=== PATIENT | female | born 1950 | race Caucasian/White ===

== ENCOUNTER 2019-11-03 12:58 | Outpatient (CLI) | payer MEDICARE, SELFPAY ==
--- NOTE | ~2019-11-03 | CT_ITS ---
EXAMINATION: CT abdomen pelvis wo con EXAM DATE: 11/03/2019 13:22 INDICATION: Abdominal pain. TECHNIQUE: Spiral CT of the abdomen and pelvis was performed without contrast. Axial, coronal and sag ittal images were reviewed. The dose-length product (DLP) for this examination was 293.47 mGy-cm. T he exposure was tailored according to patient size (auto mA exposure control), and iterative reconstr uction (ASIR) was used as additional dose reduction technique. Comparison is made to prior examinatio n from 07/06/2014. FINDINGS: There is punctate left inferior calyceal stone. The uterus is unremarkable. The bladder is unremarkable. The liver, spleen, adrenal glands and pancreas are unremarkable. There are cholecy stectomy clips. There is no retroperitoneal or pelvic lymphadenopathy. There is mild to moderate s cattered arteriosclerotic disease. The appendix is normal. The stomach and small bowel are unremarkable. There is mild sigmoid colonic diverticulosis. There is no adjacent inflammatory change to suggest diverticulitis. No free intrape ritoneal gas. The heart is normal in size. There are no pericardial or pleural effusions. The king g bases are unremarkable. There are no osteoblastic or osteolytic lesions identified. IMPRESSION: 1. No nephrolithiasis, hydronephrosis or acute intra-abdominal findings. 2. Mild sigmoid diverticulosis. 3. Punctate left nephrolithiasis. Reviewed, dictated and finalized at location B. THCARE ADMINISTRATIVE ASSISTANT
[2019-11-03 13:44] LABS: Add Urine Microscopic? NO; Appearance Urine Clear (Clear); Bilirubin Urine Negative (Negative); Blood Urine Negative (Negative); Color Urine Straw (Yellow); Glucose Urine UA Negative (Negative); Ketones Urine Negative (Negative); Leukocyte Esterase Ur Negative LEU/UL (Negative); Nitrate Urine Negative (Negative); Protein Urine Negative (Negative); Specific Grav Ur 1.009 (1.001-1.035); Urobilinogen Urine Negative mg/dL (<2.0)
== END 2019-11-03 12:59 | disposition home or self-care (01) ==
PROVIDERS: PCP Internal Medicine; Visit Provider Internal Medicine
DX: R10.9 Unspecified abdominal pain (principal); K57.30 Diverticulosis of large intestine without perforation or abscess without bleeding; N20.0 Calculus of kidney
CPT/HCPCS: 74176; 81003

== ENCOUNTER 2020-03-12 06:56 | Outpatient (CLI) | payer MEDICARE, SELFPAY ==
[2020-03-12 07:47] LABS: Hematocrit 36.6 % (37.0-47.0); Hemoglobin 12.2 g/dL (12.0-15.0); Mean Corpuscular HGB Conc 33.3 g/dl (32-36); Mean Corpuscular Hemoglobin 32.2 pg (26-34); Mean Corpuscular Volume 96.6 fl (80-100); Mean Platelet Volume 9.5 fl (7.4-10.4); Platelet Count Result 283 k/mm3 (150-375); Red Blood Count 3.79 M/mm3 (4.2-5.4); White Blood Count 6.4 K/mm3 (4.5-10.0)
[2020-03-12 07:48] LABS: Add Urine Microscopic? NO; Appearance Urine Clear (Clear); Bilirubin Urine Negative (Negative); Blood Urine Negative (Negative); Color Urine Yellow (Yellow); Glucose Urine UA Negative (Negative); Ketones Urine Negative (Negative); Leukocyte Esterase Ur Negative LEU/UL (NEGATIVE); Nitrate Urine Negative (Negative); Protein Urine Negative (Negative); Specific Grav Ur 1.013 (1.001-1.035); Urobilinogen Urine Negative mg/dL (<2.0)
[2020-03-12 08:13] LABS: Alanine Aminotransferase 10 U/L (4-35); Alkaline Phosphatase 78 U/L (38-126); Aspartate Amino Transferase 22 U/L (14-36); Bilirubin,Total 0.4 mg/dL (0.2-1.3); Blood Urea Nitrogen 15 mg/dL (7-17); Calcium 8.7 mg/dL (8.4-10.2); Carbon Dioxide 25 mmol/L (22-30); Chloride 107 mmol/L (98-107); Cholesterol 196 mg/dL (0-200); Estimated Glomerular Filt Rate > 60; Glucose 96 mg/dL (65-105); HDL Direct 87 mg/dL; Potassium 4.2 mmol/L (3.4-5.0); Sodium 139 mmol/L (137-145); Triglycerides 67 mg/dL (<150)
[2020-03-12 08:24] LABS: LDL Cholesterol Direct 94 mg/dL
[2020-03-12 08:40] LABS: Thyroid Stimulating Hormone 0.942 uIU/mL (0.465-4.680)
[2020-03-12 08:44] LABS: Vitamin D 25 Hydroxy 54.9 ng/mL
== END 2020-03-12 06:57 | disposition home or self-care (01) ==
PROVIDERS: PCP Internal Medicine; Visit Provider Internal Medicine
DX: I10 Essential (primary) hypertension (principal); E78.2 Mixed hyperlipidemia; F41.9 Anxiety disorder, unspecified; E55.9 Vitamin D deficiency, unspecified
CPT/HCPCS: 36415; 80053; 80061; 81003; 82306; 84443; 85027

== ENCOUNTER 2020-04-25 13:56 | Emergency (ER) | payer MEDICARE, SELFPAY ==
--- NOTE | ~2020-04-25 | CT_ITS ---
EXAMINATION: CT cervical spine wo con DATE: 04/25/2020 14:44 INDICATION: Patient fell and struck left forehead. Left neck and shoulder pain. TECHNIQUE: Computed tomography (CT) of the cervical spine was performed without intravenous contrast. Automated exposure control and iterative reconstruction technique were employed. Exam dose: 123.88 mGy-cm total exam DLP. COMPARISON: None FINDINGS: There is straightening of the cervical spine. There is severe degenerative disc disease at C3-4, C4-5, C5-6, C6-7 and C7-T1. No fracture or dislocation or locked facet. No prevertebral soft tissue swelling. There is uncovertebral spurring at the mid and lower cervical spine. IMPRESSION: Straightening of the cervical spine Severe degenerative disc disease Reviewed, dictated and finalized at Location A. Reviewed, dictated and finalized at location A.
--- NOTE | ~2020-04-25 | CT_ITS ---
EXAMINATION: CT brain wo con DATE: 04/25/2020 14:44 INDICATION: Patient fell and struck left forehead. Left neck and shoulder pain. TECHNIQUE: Computed tomography (CT) of the head was performed without intravenous contrast. The mA wa s adjusted according to patient size. Iterative reconstruction technique was employed. Exam dose: 52 9.67 mGy-cm total exam DLP. COMPARISON: None FINDINGS: No intracranial mass lesion or hemorrhage or cerebrovascular accident is detected. No midli ne shift or mass effect. Normal ventricular size. No subdural or epidural hematoma. Bilateral internal carotid artery calcifications. There is nonspecific diminished attenuation of the cerebral white matter, likely due to chronic small vessel ischemic changes. No fracture or bone destruction of the cranial vault. The included paranasal sinuses and mastoid air cells are normally developed and aerated. IMPRESSION: Cerebral atherosclerosis and chronic small vessel ischemic changes No acute intracranial abnormality Reviewed, dictated and finalized at Location A. Reviewed, dictated and finalized at location A.
--- NOTE | ~2020-04-25 | XR_ITS ---
XR shoulder LT min 2V DATE: 04/25/2020 14:46 INDICATION: Fall. Left shoulder pain. TECHNIQUE: 4 views COMPARISON: None FINDINGS: No fracture or dislocation, periosteal reaction or bone destruction or abnormal soft tissue calcification. IMPRESSION: No fracture or dislocation Reviewed, dictated and finalized at location A. IMPRESSION: No fracture or dislocation
[2020-04-25 14:00] VITALS: BP 141/83; PULSE 85; RESP 18; TEMP 36.6; O2SAT 97
--- NOTE | 2020-04-25 14:29 | ED.GENADULT ---
HPI - General Adult General Chief complaint: Fall Stated complaint: fall Time Seen by Provider: 04/25/20 14:13 History of Present Illness HPI narrative: Patient is a 69 y/o female complaining of sharp, left shoulder pain after a fall 30 minutes ago. She states that she tripped over a container on the porch and fell. She rates her pain as 8/10. Pain is worse with movement. She also has abrasion to left forehead and both knees. She denies any LOC. Related Data Home Medications Medication Instructions Recorded Confirmed Body, Hair, Skin and Nails 1 cap PO DAILY 07/24/19 07/24/19 Vitafusion For Women 1 tablet PO DAILY 07/24/19 07/24/19 aspirin [Aspirin Low Dose] 81 mg PO DAILY 07/24/19 07/24/19 biotin 10,000 mcg PO DAILY 07/24/19 07/24/19 cholecalciferol (vitamin D3) 2,000 unit PO DAILY 07/24/19 07/24/19 [Vitamin D3] estradiol 0.5 mg PO DAILY 07/24/19 07/24/19 [id number] 1 cap PO DAILY 07/24/19 07/24/19 [MegaRed [place]-3 Krill Oil] lysine [L-Lysine] 500 mg PO DAILY 07/24/19 07/24/19 mecobalamin (vitamin B12) 2,500 mcg PO DAILY 07/24/19 07/24/19 medroxyprogesterone [Provera] 2.5 mg PO DAILY 07/24/19 07/24/19 turmeric root extract 500 mg PO DAILY 07/24/19 07/24/19 vitamin B complex [B-Complex] 1 tablet PO DAILY 07/24/19 07/24/19 amitriptyline 10 mg PO HS 04/25/20 fluticasone propionate [Flonase 2 spray INTRANASAL DAILY 04/25/20 Allergy Relief] paroxetine HCl [Paxil] 5 mg PO DAILY 04/25/20 Allergies Allergy/AdvReac Type Severity Reaction Status Date / Time No Known Allergies Allergy Mild Verified 04/25/20 14:10 Review of Systems Constitutional: Constitutional: Denies chills, Denies fever(s), Denies headache(s) and Denies weakness Eyes: Eyes: Denies blurry vision ENT: Denies headache(s) and Denies neck pain Cardiovascular: Cardiovascular: Denies chest pain and Denies dyspnea Respiratory: Respiratory: Denies cough and Denies dyspnea Gastrointestinal: Gastrointestinal: Denies abdominal pain, Denies diarrhea, Denies nausea and Denies vomiting Genitourinary: Genitourinary: Denies hematuria and Denies dysuria Musculoskeletal: Musculoskeletal: Denies back pain, Reports arthralgias (left shoulder pain) and Reports neck pain Integumentary/Breasts: Skin/Breast: Reports other (multiple abrasion) Neurologic: Denies headache(s) and Denies weakness [facility] Past Medical History Medical History Arthritis Carotid arterial disease Carotid bruit HTN (hypertension) Hypovitaminosis D Lumbar spondylolysis Marijuana use Mixed hyperlipidemia Post-menopausal PVD (peripheral vascular disease) Family History Family History Mother Cerebrovascular accident Father Acute myocardial infarction Social History Social History Alcohol intake: current Gender identity (if verbalized by the patient): Female Exam Const: General: no acute distress and well developed Orientation/consciousness: oriented to person, oriented to place, oriented to time and patient oriented x3 HENMT: Head: normocephalic Ears: external ears normal General nose exam: Normal external nose present Eyes: General: appearance normal, both eyes and all related structures Conjunctivae: conjunctivae normal Neck: Neck: normal visual inspection and full ROM Chest: Chest palpation & inspection: normal inspection of the chest and no tenderness Resp: Effort & Inspection: normal respiratory effort Auscultation: clear to auscultation bilaterally Cardio: Rate: regular rate Rhythm: regular rhythm GI: GI Palp: No abdominal tenderness and Yes Soft to palpation Skin: General skin exam: normal color and turgor normal Trauma: abrasion (left forehead, both knees) Neuro: General: oriented to person, oriented to place, oriented to time and patient oriented x3 Cognition (Neuro): normal
[2020-04-25] MEDS: TETANUS,DIPHTHERIA,AC PERTUSSIS ADULT (0.5 ML) BOOSTRIX IM (15:05)
[2020-04-25 15:10] VITALS: BP 153/85; PULSE 80; RESP 20; O2SAT 98
[2020-04-25] MEDS: IBUPROFEN 600 MG TABLET PO (16:27)
[2020-04-25 17:00] VITALS: PULSE 80; RESP 20; O2SAT 98
== END 2020-04-25 17:27 | disposition home or self-care (01) ==
PROVIDERS: Emergency Provider Emergency Medicine; PCP Internal Medicine
DX: S49.92XA Unspecified injury of left shoulder and upper arm, initial encounter (principal); S80.212A Abrasion, left knee, initial encounter; S80.211A Abrasion, right knee, initial encounter; S00.81XA Abrasion of other part of head, initial encounter; Z79.82 Long term (current) use of aspirin; M19.90 Unspecified osteoarthritis, unspecified site; I25.10 Atherosclerotic heart disease of native coronary artery without angina pectoris; I10 Essential (primary) hypertension; E78.2 Mixed hyperlipidemia; I73.9 Peripheral vascular disease, unspecified; Z23 Encounter for immunization; E55.9 Vitamin D deficiency, unspecified; W18.09XA Striking against other object with subsequent fall, initial encounter
CPT/HCPCS: 70450; 72125; 73030; 90471; 90715; 99284; A4565; A9270

== ENCOUNTER 2020-05-21 08:45 | Outpatient (CLI) | payer MEDICARE, SELFPAY ==
--- NOTE | 2020-05-21 09:08 | ECG_ITS ---
Measurements Intervals [place] Rate: 74 P: 57 NV: 129 QRS: 69 QRSD: 80 T: 27 QT: 396 QTc: 440 Interpretive Statements SINUS RHYTHM BORDERLINE ST ABNORMALITY- ANTEROLAT/INF LEADS BASELINE ARTIFACT- I, II, III, AVL, AVF BORDERLINE ECG Electronically Signed On 05-21-2020 9:33:26 CDT by Navdeep Adamson D.O.
== END 2020-05-21 08:46 | disposition home or self-care (01) ==
PROVIDERS: PCP Internal Medicine; Visit Provider Internal Medicine
DX: I10 Essential (primary) hypertension (principal); R94.31 Abnormal electrocardiogram [ECG] [EKG]
CPT/HCPCS: 93005

== ENCOUNTER 2020-09-17 08:34 | Outpatient (CLI) | payer MEDICARE, SELFPAY ==
[2020-09-17 09:08] LABS: Basophils Absolute Auto 0.1 K/mm3 (0.0-0.1); Basophils Percent Auto 1.1 % (0.2-1.2); Eosinophils Absolute Auto 0.1 K/mm3 (0-0.3); Eosinophils Percent Auto 2.6 % (0-4.4); Hemoglobin 12.3 g/dL (12.0-15.0); Immature Granulocyte Absolute 0.02 K/mm3 (0.00-0.031); Immature Granulocyte Percent A 0.4 % (0-0.5); Lymphocytes Absolute Auto 1.78 K/mm3 (0.9-3.2); Lymphocytes Percent Auto 32.7 % (18.3-44.2); Mean Corpuscular HGB Conc 33.2 g/dl (32-36); Mean Corpuscular Hemoglobin 31.5 pg (26-34); Mean Corpuscular Volume 94.6 fl (80-100); Monocytes Absolute Auto 0.3 K/mm3 (0.1-0.6); Monocytes Percent Auto 6.3 % (2.6-8.5); Neutrophils Absolute Auto 3.1 K/mm3 (1.3-6.7); Neutrophils Percent Auto 56.9 % (45.5-73.1); Platelet Count Result 284 k/mm3 (150-375); Red Blood Count 3.91 M/mm3 (4.2-5.4); Red Cell Distribution Width 12.7 % (11.5-14.5); White Blood Count 5.4 K/mm3 (4.5-10.0)
[2020-09-17 09:29] LABS: Alanine Aminotransferase 14 U/L (4-35); Albumin Level 3.9 g/dL (3.5-5.1); Alkaline Phosphatase 73 U/L (38-126); Anion Gap 4 mmol/L (8-16); Aspartate Amino Transferase 25 U/L (14-36); Bilirubin,Total 0.5 mg/dL (0.2-1.3); Blood Urea Nitrogen 19 mg/dL (7-17); Calcium 9.1 mg/dL (8.4-10.2); Carbon Dioxide 28 mmol/L (22-30); Chloride 107 mmol/L (98-107); Estimated Glomerular Filt Rate > 60; Glucose 82 mg/dL (65-105); Potassium 4.2 mmol/L (3.4-5.0); Sodium 139 mmol/L (137-145)
[2020-09-17 10:14] LABS: Vitamin D 25 Hydroxy 58.3 ng/mL
== END 2020-09-17 08:35 | disposition home or self-care (01) ==
LOC: ANHLAB 08:37
PROVIDERS: PCP Internal Medicine; Visit Provider Internal Medicine
DX: E78.5 Hyperlipidemia, unspecified (principal); R00.2 Palpitations; F41.9 Anxiety disorder, unspecified; E55.9 Vitamin D deficiency, unspecified
CPT/HCPCS: 36415; 80053; 82306; 85025

== ENCOUNTER 2020-09-30 13:12 | Emergency (ER) | payer MEDICARE, SELFPAY ==
--- NOTE | ~2020-09-30 | XR_ITS ---
EXAMINATION: XR chest 2V EXAM DATE: 09/30/2020 13:58 INDICATION: Cough with bilateral wheezing. TECHNIQUE: Frontal and lateral projections of the chest obtained and reviewed. Comparison is made to prior examination from 06/24/2019. FINDINGS: Moderate chronic hyperinflation. Small amount of right apical scarring. The lungs are othe rwise clear. There are no pleural effusions. The cardiomediastinal silhouette is within normal limi ts. There is no pneumothorax suspected. Old right rib fractures. IMPRESSION: No acute cardiopulmonary findings. Reviewed, dictated and finalized at location A. JELLY
[2020-09-30 13:42] VITALS: BP 152/89; PULSE 73; RESP 18; TEMP 36.3; O2SAT 99
--- NOTE | 2020-09-30 13:49 | ED.URI ---
HPI - URI/Sore Throat General Chief Complaint: Upper Respiratory Infection Stated Complaint: upper respiratory infection Source: patient Mode of arrival: ambulatory Limitations: no limitations History of Present Illness HPI Narrative: 70-year-old female presents to [facility] with complaints of sinus pressure, nasal congestion and mild dry cough for the past 4 days. Patient reports that she had a known exposure to coronavirus 5 days ago. Patient is a non-smoker. Patient denies recent travel. Patient denies shortness of breath, wheezing, fever, body aches, chills, nausea, vomiting or diarrhea. Patient has been taking pptp-sup-lumlxwh [place] cold medication with little relief. MD elicited complaint: cough, nasal congestion and other (sinus pressure) Onset (ago): day(s) (4) Able to tolerate fluids by mouth: Yes Exacerbating factors: nothing Relieving factors: nothing Context: sick contacts Associated symptoms: denies other symptoms Treatments prior to arrival: cold medicine Related Data Home Medications Medication Instructions Recorded Confirmed Body, Hair, Skin and Nails 1 cap PO DAILY 07/24/19 09/13/20 Vitafusion For Women 1 tablet PO DAILY 07/24/19 09/13/20 aspirin [Aspirin Low Dose] 81 mg PO DAILY 07/24/19 09/13/20 cholecalciferol (vitamin D3) 2,000 unit PO DAILY 07/24/19 09/13/20 [Vitamin D3] estradiol 0.5 mg PO DAILY 07/24/19 09/13/20 [id number] 1 cap PO DAILY 07/24/19 09/13/20 [MegaRed [place]-3 Krill Oil] lysine [L-Lysine] 500 mg PO DAILY 07/24/19 09/13/20 medroxyprogesterone [Provera] 2.5 mg PO DAILY 07/24/19 09/13/20 Allergies Allergy/AdvReac Type Severity Reaction Status Date / Time No Known Allergies Allergy Mild Verified 09/13/20 09:52 Review of Systems Constitutional: Constitutional: Denies chills, Denies fever(s) and Denies weakness ENT: Denies dysphagia, Denies vertigo, Denies dizziness, Denies epistaxis, Reports nasal congestion and Denies sore throat Cardiovascular: Cardiovascular: Denies chest pain, Denies rapid heart rate and Denies radiating jaw, neck or arm pain Respiratory: Respiratory: Denies chest congestion, Reports cough, Denies dyspnea and Denies wheezing Gastrointestinal: Gastrointestinal: Denies abdominal pain, Denies diarrhea, Denies nausea and Denies vomiting Integumentary/Breasts: Skin/Breast: Denies rash Neurologic: Denies vertigo, Denies dizziness, Denies syncope, Denies headache(s), Denies focal weakness and Denies numbness PMFSH Past Medical History Medical History Acute sinusitis Arthritis BMI 21.0-21.9, adult Burning tongue syndrome Carotid arterial disease Carotid bruit Encounter for routine adult health examination without abnormal findings Essential hypertension Hormone replacement therapy (HRT) HTN (hypertension) Hypovitaminosis D Lumbar spondylolysis Marijuana use Mixed hyperlipidemia Vogel's neuroma of right foot On half-way drug therapy Pain of back and right lower extremity Parotiditis Post-menopausal Posterior cervical adenopathy Pulmonary nodule PVD (peripheral vascular disease) Seasonal allergies Surgical History Surgical History History of left-sided carotid endarterectomy Family History Family History Mother Cerebrovascular accident Father Acute myocardial infarction Social History Social History Alcohol intake: current Gender identity (if verbalized by the patient): Female Comments At time of signature, I agree with nursing past medical, surgical, social and family history. There is no relevant family history pertinent to the presenting complaint. Exam Const: General: healthy appearing and no acute distress Orientation/consciousness: patient oriented x3 HENMT: Head: normal to insp
== END 2020-09-30 14:00 | disposition home or self-care (01) ==
PROVIDERS: Emergency Provider Nurse Practitioner Family; PCP Internal Medicine
DX: U07.1 COVID-19 (principal); M19.90 Unspecified osteoarthritis, unspecified site; I25.10 Atherosclerotic heart disease of native coronary artery without angina pectoris; I10 Essential (primary) hypertension; E78.2 Mixed hyperlipidemia; I73.9 Peripheral vascular disease, unspecified; M47.816 Spondylosis without myelopathy or radiculopathy, lumbar region; E55.9 Vitamin D deficiency, unspecified
CPT/HCPCS: 71046; 87426; 87804; 99213; C9803; G0463

== ENCOUNTER 2021-08-09 09:27 | Outpatient (CLI) | payer MEDICARE, SELFPAY ==
--- NOTE | ~2021-08-09 | MM_ITS ---
EXAMINATION: MM scrn mariya implant BI w twila HISTORY: Screening mammogram TECHNIQUE: Craniocaudal and mediolateral oblique 3-D tomosynthesis images with implant displacement a nd synthetic 2-D images were generated. Craniocaudal and mediolateral oblique views of the breasts wi thout implant displacement were obtained using full field digital mammography. CAD analysis was submi tted and interpreted. COMPARISON: No prior mammogram is available for comparison at this institution. BREAST PARENCHYMAL COMPOSITION: There are scattered areas of fibroglandular density. FINDINGS: Status post bilateral augmentation mammoplasty. There is no evidence of suspicious mass, ca lcification, or architectural distortion to suggest malignancy in either breast. There has been no amaya spicious interval change. IMPRESSION: 1. No mammographic evidence of malignancy. 2. Recommend routine screening mammography in one year. BI-RADS Category 1: Negative Reviewed, dictated and finalized at location A. APPLICATIONS MANAGER
== END 2021-08-09 09:28 | disposition home or self-care (01) ==
LOC: ANHIMG 09:29
PROVIDERS: PCP Internal Medicine; Visit Provider Nurse Practitioner Women's Health
DX: Z12.31 Encounter for screening mammogram for malignant neoplasm of breast (principal)
CPT/HCPCS: 77063; 77067

== ENCOUNTER 2021-11-11 06:56 | Outpatient (CLI) | payer MEDICARE, SELFPAY ==
[2021-11-11 07:26] LABS: Basophils Absolute Auto 0.1 K/mm3 (0.0-0.1); Eosinophils Absolute Auto 0.3 K/mm3 (0-0.3); Eosinophils Percent Auto 5.5 % (0-4.4); Hematocrit 37.2 % (37.0-47.0); Hemoglobin 12.5 g/dL (12.0-15.0); Immature Granulocyte Absolute 0.01 K/mm3 (0.00-0.031); Immature Granulocyte Percent A 0.2 % (0-0.5); Lymphocytes Absolute Auto 1.92 K/mm3 (0.9-3.2); Lymphocytes Percent Auto 37.5 % (18.3-44.2); Mean Corpuscular HGB Conc 33.6 g/dl (32-36); Mean Corpuscular Hemoglobin 32.6 pg (26-34); Mean Corpuscular Volume 96.9 fl (80-100); Mean Platelet Volume 9.4 fl (7.4-10.4); Monocytes Absolute Auto 0.4 K/mm3 (0.1-0.6); Monocytes Percent Auto 7.6 % (2.6-8.5); Neutrophils Absolute Auto 2.4 K/mm3 (1.3-6.7); Neutrophils Percent Auto 47.2 % (45.5-73.1); Platelet Count Result 279 k/mm3 (150-375); Red Blood Count 3.84 M/mm3 (4.2-5.4); Red Cell Distribution Width 13.1 % (11.5-14.5); White Blood Count 5.1 K/mm3 (4.5-10.0)
[2021-11-11 07:38] LABS: Alanine Aminotransferase 17 U/L (4-35); Albumin Level 4.2 g/dL (3.5-5.1); Alkaline Phosphatase 87 U/L (38-126); Anion Gap 4 mmol/L (8-16); Aspartate Amino Transferase 28 U/L (14-36); Bilirubin,Total 0.7 mg/dL (0.2-1.3); Blood Urea Nitrogen 16 mg/dL (7-17); Calcium 9.1 mg/dL (8.4-10.2); Carbon Dioxide 29 mmol/L (22-30); Chloride 105 mmol/L (98-107); Cholesterol 208 mg/dL (0-200); Estimated Glomerular Filt Rate > 60; Glucose 100 mg/dL (65-110); HDL Direct 81 mg/dL; Potassium 4.1 mmol/L (3.4-5.0); Sodium 138 mmol/L (137-145); Triglycerides 60 mg/dL (<150)
[2021-11-11 07:50] LABS: LDL Cholesterol Direct 90 mg/dL
[2021-11-11 08:09] LABS: Thyroid Stimulating Hormone 0.172 uIU/mL (0.465-4.680)
[2021-11-11 08:09] LABS: MALB Creatinine Ratio < 10.5 mg/g (0-30); Microalbumin Urine Random < 6.0 mg/L (0-16.7)
[2021-11-11 08:44] LABS: Folic Acid > 20.0 ng/mL (2.76->20); Vitamin B12 > 1000.0 pg/mL (239-931)
== END 2021-11-11 06:57 | disposition home or self-care (01) ==
PROVIDERS: PCP Internal Medicine; Visit Provider Internal Medicine
DX: E55.9 Vitamin D deficiency, unspecified (principal); I10 Essential (primary) hypertension; F41.9 Anxiety disorder, unspecified; R00.2 Palpitations; E78.2 Mixed hyperlipidemia
CPT/HCPCS: 36415; 80053; 80061; 82043; 82607; 82746; 84443; 85025

== ENCOUNTER 2021-11-21 06:57 | Outpatient (CLI) | payer MEDICARE, SELFPAY ==
[2021-11-21 08:59] LABS: Free T4 Free Thyroxine 1.07 ng/mL (0.78-2.19)
== END 2021-11-21 06:58 | disposition home or self-care (01) ==
LOC: ANHLAB 06:59
PROVIDERS: PCP Internal Medicine; Visit Provider Internal Medicine
DX: R79.89 Other specified abnormal findings of blood chemistry (principal); I10 Essential (primary) hypertension
CPT/HCPCS: 36415; 84439; 84443

== ENCOUNTER 2021-12-18 10:03 | Emergency (ER) | payer MEDICARE, SELFPAY ==
--- NOTE | ~2021-12-18 | XR_ITS ---
EXAMINATION: XR chest 2V EXAM DATE: 12/18/2021 10:41 INDICATION: pain with inspiration on left side TECHNIQUE: Frontal and lateral projections of the chest obtained and reviewed. Comparison is made to prior examination from 09/30/2020. FINDINGS: Interval development of segmental lingular airspace disease, most likely pneumonia and wou ld favor bacterial etiology given unilaterality. Some chronic hyperinflation. Moderate lower thoracic spondylosis. There is no pneumothorax suspected. There are no pleural effusions. Cardiomediastinal s ilhouette is normal. IMPRESSION: 1. Segmental lingular pneumonia. 2. Moderate hyperinflation. Reviewed, dictated and finalized at location A.
--- NOTE | 2021-12-18 10:11 | ED.URI ---
HPI - URI/Sore Throat General Chief Complaint: Unspecified Stated Complaint: Body Aches Time Seen by Provider: 12/18/21 10:11 Source: patient Mode of arrival: ambulatory Limitations: no limitations History of Present Illness HPI Narrative: Ms. Brown is a 71-year-old female patient presenting to the clinic today with complaints of left-sided back and left-sided chest pain just under the breast x2 days. She reports she had a respiratory infection last week. States that she developed left sided back and neck pain yesterday that radiates across into the left side of her chest just under the breast. Pain is worse with inspiration. Had a fever of 102 ?F yesterday. Has been taking Motrin for temperature and pain and this has somewhat alleviated the discomfort and fever. Has a nonproductive cough. Reports some shortness of breath with activity as well as pain with coughing. She denies any heavy lifting or injury to her back or chest. She denies any development of rash. She denies any known exposure to anyone with Covid, strep, or influenza. Related Data Home Medications Medication Instructions Recorded Confirmed Body, Hair, Skin and Nails 1 cap PO DAILY 07/24/19 12/18/21 Vitafusion For Women 1 tablet PO DAILY 07/24/19 12/18/21 aspirin [Aspirin Low Dose] 81 mg PO DAILY 07/24/19 12/18/21 cholecalciferol (vitamin D3) 2,000 unit PO DAILY 07/24/19 12/18/21 [Vitamin D3] estradiol 0.5 mg PO DAILY 07/24/19 12/18/21 [id number] 1 cap PO DAILY 07/24/19 12/18/21 [MegaRed [place]-3 Krill Oil] lysine [L-Lysine] 500 mg PO DAILY 07/24/19 12/18/21 medroxyprogesterone [Provera] 2.5 mg PO DAILY 07/24/19 12/18/21 Allergies Allergy/AdvReac Type Severity Reaction Status Date / Time No Known Allergies Allergy Mild Verified 11/14/21 07:52 Review of Systems Review of Systems: Pertinent positives per HPI. Patient denies any, rash, headache, visual changes, dizziness, chest pain, palpitations, nausea, vomiting, diarrhea, constipation, abdominal pain, or any urinary issues. [facility] Past Medical History Medical History Acute sinusitis Arthritis BMI 21.0-21.9, adult Burning tongue syndrome Carotid arterial disease Carotid bruit Carpal tunnel syndrome of right wrist resolved after surgery in Oct 2020 Encounter for routine adult health examination without abnormal findings Essential hypertension Hormone replacement therapy (HRT) HTN (hypertension) Hypovitaminosis D Lumbar spondylolysis Marijuana use Mixed hyperlipidemia Vogel's neuroma of right foot On [facility] drug therapy Pain of back and right lower extremity Parotiditis Post-menopausal Posterior cervical adenopathy Pulmonary nodule PVD (peripheral vascular disease) Seasonal allergies Surgical History Surgical History History of left-sided carotid endarterectomy Family History Family History Mother Cerebrovascular accident Father Acute myocardial infarction Social History Social History Smoking packs per day: 0.5 Smoking cigarettes per day: 10.0 Years smoked: 20 Smoking pack-years: 10.00 Smoking status: Former smoker Tobacco type: cigarettes Smoking end date: 01/12/02 Alcohol intake: current Drinks per week: 1 Substance use: never Gender identity (if verbalized by the patient): Female Comments At the time of my signature, I reviewed and agree with the nursing past medical, surgical, social, and family history. There is no relevant family history pertinent to the patient complaint. Exam Narrative: General: Well-developed, well nourished, in no apparent distress Head: Normocephalic, atraumatic Eyes: Pupils equally round and reactive to light bilaterally, EOM intact, sclera and conjun
[2021-12-18 10:20] VITALS: BP 108/58; PULSE 108; RESP 18; TEMP 36.1; O2SAT 100
== END 2021-12-18 11:07 | disposition home or self-care (01) ==
PROVIDERS: Emergency Provider Nurse Practitioner Family; PCP Internal Medicine
DX: J18.9 Pneumonia, unspecified organism (principal); Z87.891 Personal history of nicotine dependence; M19.90 Unspecified osteoarthritis, unspecified site; I10 Essential (primary) hypertension; E78.2 Mixed hyperlipidemia; I73.9 Peripheral vascular disease, unspecified; I77.9 Disorder of arteries and arterioles, unspecified; M47.816 Spondylosis without myelopathy or radiculopathy, lumbar region; Z79.82 Long term (current) use of aspirin
CPT/HCPCS: 71046; 99213; G0463

== ENCOUNTER 2021-12-28 10:41 | Outpatient (CLI) | payer MEDICARE, SELFPAY ==
--- NOTE | ~2021-12-28 | XR_ITS ---
EXAMINATION: XR chest 2V DATE: 12/28/2021 11:04 INDICATION: Pneumonia. Cough. TECHNIQUE: Frontal and lateral views of the chest were obtained. COMPARISON: Chest 2 views 12/18/2021, 09/30/2020, chest CT 01/12/2016 FINDINGS: There are airspace opacities in lingula. There is stable mild scarring at the lung apices. No pleural effusion or pneumothorax. The heart size is normal. There are old healed right rib fractur es. There are surgical clips in left neck. Surgical clips in the right upper quadrant are likely from cholecystectomy. Breast implants are noted. IMPRESSION: 1. Improved airspace opacities in lingula, consistent with atelectasis versus pneumonia. Reviewed, dictated and finalized at location B. IMPRESSION: 1. Improved airspace opacities in lingula, consistent with atelectasis versus p neumonia.
== END 2021-12-28 10:42 | disposition home or self-care (01) ==
PROVIDERS: PCP Internal Medicine; Visit Provider Internal Medicine
DX: J18.9 Pneumonia, unspecified organism (principal)
CPT/HCPCS: 71046

== ENCOUNTER 2022-02-13 16:29 | Outpatient (CLI) | payer MEDICARE, SELFPAY ==
[2022-02-13 17:25] LABS: Alanine Aminotransferase 23 U/L (6-35); Albumin Level 3.9 g/dL (3.5-5.1); Alkaline Phosphatase 274 U/L (38-126); Aspartate Amino Transferase 34 U/L (14-36); Bilirubin,Total 0.5 mg/dL (0.2-1.3); Creatine Kinase 113 U/L (30-135)
== END 2022-02-13 16:30 | disposition home or self-care (01) ==
PROVIDERS: PCP Family Medicine; Visit Provider Nurse Practitioner Family
DX: E78.5 Hyperlipidemia, unspecified (principal)
CPT/HCPCS: 36415; 80076; 82550

== ENCOUNTER 2022-02-17 09:40 | Outpatient (CLI) | payer MEDICARE, SELFPAY ==
[2022-02-17 10:34] LABS: Basophils Absolute Auto 0.1 K/mm3 (0.0-0.1); Eosinophils Absolute Auto 0.3 K/mm3 (0-0.3); Eosinophils Percent Auto 3.3 % (0-4.4); Hemoglobin 10.8 g/dL (12.0-15.0); Immature Granulocyte Absolute 0.04 K/mm3 (0.00-0.031); Immature Granulocyte Percent A 0.4 % (0-0.5); Lymphocytes Absolute Auto 2.46 K/mm3 (0.9-3.2); Lymphocytes Percent Auto 27.4 % (18.3-44.2); Mean Corpuscular HGB Conc 32.7 g/dl (32-36); Mean Corpuscular Hemoglobin 30.1 pg (26-34); Mean Corpuscular Volume 91.9 fl (80-100); Mean Platelet Volume 9.2 fl (7.4-10.4); Monocytes Absolute Auto 0.8 K/mm3 (0.1-0.6); Monocytes Percent Auto 8.4 % (2.6-8.5); Neutrophils Absolute Auto 5.3 K/mm3 (1.3-6.7); Neutrophils Percent Auto 59.5 % (45.5-73.1); Platelet Count Result 395 k/mm3 (150-375); Red Blood Count 3.59 M/mm3 (4.2-5.4); Red Cell Distribution Width 14.3 % (11.5-14.5)
[2022-02-17 12:55] LABS: Erythrocyte Sedimentation Rate 127 mm/hr (0-20)
[2022-02-20 14:37] LABS: CRP, High Sensitivity >10.0 mg/L (***)
== END 2022-02-17 09:41 | disposition home or self-care (01) ==
PROVIDERS: PCP Family Medicine; Visit Provider Family Medicine
DX: M79.10 Myalgia, unspecified site (principal)
CPT/HCPCS: 36415; 85025; 85652; 86141

== ENCOUNTER 2022-03-10 07:19 | Outpatient (CLI) | payer MEDICARE, SELFPAY ==
[2022-03-15 18:09] LABS: ANA Cascade Screen Negative (Negative)
== END 2022-03-10 07:20 | disposition home or self-care (01) ==
LOC: ANHLAB 07:22
PROVIDERS: PCP Family Medicine; Visit Provider Family Medicine
DX: M79.10 Myalgia, unspecified site (principal)
CPT/HCPCS: 36415; 86038

== ENCOUNTER 2022-09-13 09:58 | Outpatient (CLI) | payer MEDICARE, SELFPAY ==
--- NOTE | ~2022-09-13 | DEXA_ITS ---
Bone Density Report Name: HONORIO SÁNCHEZ Age: 72 Sex: Female Ethnicity: White Date of : 1950 Indication: postmenopausal; screening for osteoporosis; prior fracture; Referring Provider: JAYLIN MCARTHUR Study: Bone densitometry was performed. Exam Date: September 13, 2022 Accession number: [id number] Bone Density: Region BMD T-score Z-score Classification AP Spine(L2, L3, L4) 1.110 0.3 2.5 Normal Femoral Neck (Left) 0.895 0.4 2.3 Normal Total Hip (Left) 0.882 -0.5 1.1 Normal Femoral Neck (Right) 0.903 0.5 2.3 Normal Total Hip (Right) 0.869 -0.6 1.0 Normal Total Hip Mean 0.875 -0.6 1.1 Normal World Health Organization criteria for BMD impression classify patients as: Normal (T-score at or above -1.0), Osteopenia (T-score between -1.0 and -2.5), or Osteoporosis (T-score at or below -2.5). 10-year Fracture Risk: FRAX not reported because: All T-scores for Spine Total, Hip Total, Femoral Neck at or above -1.0 Clinical Information Provided by Patient: Has had a low trauma fracture Has used the following medications: HRT (i.e. estrogen/hormone therapy), Vitamin D Patient maximum height was 63.5 Menopause Age: 47 Drinks caffeinated beverages Onset of menses at age 13 Number of children 3 Impression: The patient has normal bone mass. The patient has risk factors, including: previous fracture. Discussion: BONE DENSITY IS ABOVE THE MINIMUM DESIRABLE LEVEL AT ALL SKELETAL SITES TESTED. This patient?s bone mineral density is above the minimum desirable level (T-score -1.0 or better) at all sites measured. The patient should follow a healthful lifestyle (good nutrition with adequate calcium and vitamin D, and appropriate weight-bearing exercise). Follow-Up: Consider repeating this study in 5 years or sooner if there is some new clinical indication. Reported by: [facility] on 09/13/2022 10:48:00 AM. Reviewed, dictated and finalized at location AChristina MENDOZA
== END 2022-09-13 09:59 | disposition home or self-care (01) ==
PROVIDERS: PCP Family Medicine; Visit Provider Family Medicine
DX: Z78.0 Asymptomatic menopausal state (principal)
CPT/HCPCS: 77080

== ENCOUNTER 2022-09-20 14:58 | Outpatient (CLI) | payer MEDICARE, SELFPAY ==
--- NOTE | ~2022-09-20 | MM_ITS ---
EXAMINATION: MM scrn mariya implant BI w twila HISTORY: Screening mammogram TECHNIQUE: Craniocaudal and mediolateral oblique 3-D tomosynthesis images with implant displacement a nd synthetic 2-D images were generated. Craniocaudal and mediolateral oblique views of the breasts wi thout implant displacement were obtained using full field digital mammography. CAD analysis was submi tted and interpreted. COMPARISON: 08/09/2021 bilateral implant screening mammogram BREAST PARENCHYMAL COMPOSITION: There are scattered areas of fibroglandular density. FINDINGS: Status post bilateral augmentation mammoplasty. There is no evidence of suspicious mass, ca lcification, or architectural distortion to suggest malignancy in either breast. There has been no amaya spicious interval change. IMPRESSION: 1. No mammographic evidence of malignancy. 2. Recommend routine screening mammography in one year. BI-RADS Category 1: Negative Reviewed, dictated and finalized at location A. NG MACHINE OPERATOR
== END 2022-09-20 14:59 | disposition home or self-care (01) ==
LOC: ANHIMG 14:59
PROVIDERS: PCP Family Medicine; Visit Provider Nurse Practitioner Women's Health
DX: Z12.31 Encounter for screening mammogram for malignant neoplasm of breast (principal)
CPT/HCPCS: 77063; 77067

== ENCOUNTER → 2023-05-18 06:59 | Outpatient (CLI) | payer MEDICARE, SELFPAY ==
--- NOTE | ~2023-05-18 | MR_ITS ---
MRI of the right foot CLINICAL HISTORY: Soft tissue mass TECHNIQUE: Sagittal T1-weighted and STIR images, axial proton-density and proton-density fat-sat imag es, and coronal T1-weighted and proton-density fat-sat images were acquired. FINDINGS: There is moderate degenerative change at the first metatarsophalangeal joint, with diffuse chondromalacia, small osteophyte formation, and small joint effusion. At the dorsal aspect of the fir st interspace region, there is a 0.9 cm cystic mass with single thin septation, most consistent with ganglion cyst, probably arising the ascending from the first MTP joint. Remaining joint spaces are preserved. No fracture or osteomyelitis seen. No other joint effusion seen . Flexor and extensor tendons are intact. No intermetatarsal bursitis or Vogel's neuroma identified. N o other soft tissue mass or fluid collection seen. Plantar fascia is intact. IMPRESSION: 0.9 cm cystic mass at the dorsal aspect of the first interspace region, most consistent with ganglion cyst, likely arising from the first MTP joint. Moderate degenerative change of the first MTP joint, as detailed above. Reviewed, dictated and finalized at location . IMPRESSION: 0.9 cm cystic mass at the dorsal aspect of the first interspace region, most co nsistent with ganglion cyst, likely arising from the first MTP joint. Moderate degenerative change of the first MTP joint, as detailed above.
== END ==
PROVIDERS: PCP Family Medicine; Visit Provider Podiatrist Foot & Ankle Surgery
DX: M67.479 Ganglion, unspecified ankle and foot (principal)
CPT/HCPCS: 73718

== ENCOUNTER 2023-06-08 07:15 | Outpatient (CLI) | payer MEDICARE, SELFPAY ==
[2023-06-08 08:03] LABS: Basophils Absolute Auto 0.1 K/mm3 (0.0-0.1); Basophils Percent Auto 1.1 % (0.2-1.2); Eosinophils Absolute Auto 0.3 K/mm3 (0-0.3); Eosinophils Percent Auto 4.4 % (0-4.4); Hematocrit 40.7 % (37.0-47.0); Hemoglobin 13.5 g/dL (12.0-15.0); Immature Granulocyte Absolute 0.02 K/mm3 (0.00-0.031); Immature Granulocyte Percent A 0.4 % (0-0.5); Lymphocytes Absolute Auto 1.89 K/mm3 (0.9-3.2); Lymphocytes Percent Auto 33.6 % (18.3-44.2); Mean Corpuscular HGB Conc 33.2 g/dl (32-36); Mean Corpuscular Hemoglobin 32.7 pg (26-34); Mean Corpuscular Volume 98.5 fl (80-100); Mean Platelet Volume 9.7 fl (7.4-10.4); Monocytes Absolute Auto 0.5 K/mm3 (0.1-0.6); Monocytes Percent Auto 8.9 % (2.6-8.5); Neutrophils Absolute Auto 2.9 K/mm3 (1.3-6.7); Neutrophils Percent Auto 51.6 % (45.5-73.1); Platelet Count Result 303 k/mm3 (150-375); Red Blood Count 4.13 M/mm3 (4.2-5.4); Red Cell Distribution Width 12.9 % (11.5-14.5); White Blood Count 5.6 K/mm3 (4.5-10.0)
[2023-06-08 08:14] LABS: Alanine Aminotransferase 16 U/L (6-35); Alkaline Phosphatase 70 U/L (38-126); Anion Gap 3 mmol/L (8-16); Aspartate Amino Transferase 30 U/L (14-36); Bilirubin,Total 0.8 mg/dL (0.2-1.3); Blood Urea Nitrogen 12 mg/dL (7-17); Carbon Dioxide 29 mmol/L (22-30); Chloride 107 mmol/L (98-107); Cholesterol 189 mg/dL (0-200); Estimated Glomerular Filt Rate > 60; Glucose 98 mg/dL (65-110); HDL Direct 77 mg/dL; Potassium 3.8 mmol/L (3.4-5.0); Sodium 139 mmol/L (137-145); Triglycerides 50 mg/dL (<150)
[2023-06-08 08:21] LABS: Rheumatoid Factor < 12.0 IU/ML (<12)
[2023-06-08 08:25] LABS: LDL Cholesterol Direct 92 mg/dL
[2023-06-08 08:28] LABS: Iron 60 ug/dL (37-170)
[2023-06-08 08:38] LABS: Percent Iron Saturation 16 % (20-50)
== END 2023-06-08 07:16 | disposition home or self-care (01) ==
LOC: ANHLAB 07:17
PROVIDERS: PCP Family Medicine; Visit Provider Family Medicine
DX: D50.9 Iron deficiency anemia, unspecified (principal); Z13.29 Encounter for screening for other suspected endocrine disorder; Z13.228 Encounter for screening for other metabolic disorders; E78.5 Hyperlipidemia, unspecified; M25.50 Pain in unspecified joint; R53.83 Other fatigue
CPT/HCPCS: 36415; 80053; 80061; 82728; 83540; 83550; 84443; 85025; 86430

== ENCOUNTER 2023-09-24 09:25 | Outpatient (CLI) | payer MEDICARE, SELFPAY ==
--- NOTE | ~2023-09-24 | MM_ITS ---
EXAMINATION: MM scrn mariya implant BI w twila HISTORY: Screening mammogram TECHNIQUE: Craniocaudal and mediolateral oblique 3-D tomosynthesis images with implant displacement a nd synthetic 2-D images were generated. Craniocaudal and mediolateral oblique views of the breasts wi thout implant displacement were obtained using full field digital mammography. CAD analysis was submi tted and interpreted. COMPARISON: Comparison to multiple prior studies sequentially, with oldest reviewed study dated 07/13. BREAST PARENCHYMAL COMPOSITION: There are scattered areas of fibroglandular density. FINDINGS: There is no evidence of suspicious mass, calcification, or architectural distortion to sugg est malignancy in either breast. There has been no suspicious interval change. IMPRESSION: 1. No mammographic evidence of malignancy. 2. Recommend routine screening mammography in one year. BI-RADS Category 1: Negative Reviewed, dictated and finalized at location A. T DESK MANAGER
== END 2023-09-24 09:26 | disposition home or self-care (01) ==
LOC: ANHIMG 09:28
PROVIDERS: PCP Family Medicine; Visit Provider Nurse Practitioner Women's Health
DX: Z12.31 Encounter for screening mammogram for malignant neoplasm of breast (principal)
CPT/HCPCS: 77063; 77067

== ENCOUNTER 2024-02-23 06:51 | Outpatient (CLI) | payer MEDICARE, SELFPAY ==
[2024-02-23 07:14] LABS: Alanine Aminotransferase 13 U/L (6-35); Albumin Level 3.7 g/dL (3.5-5.1); Alkaline Phosphatase 89 U/L (38-126); Anion Gap 5 mmol/L (4-12); Aspartate Amino Transferase 26 U/L (14-36); Bilirubin,Total 0.6 mg/dL (0.2-1.3); Blood Urea Nitrogen 12 mg/dL (7-17); Calcium 8.8 mg/dL (8.4-10.2); Carbon Dioxide 26 mmol/L (22-30); Chloride 110 mmol/L (98-107); Cholesterol 184 mg/dL (0-200); Estimated Glomerular Filt Rate > 60; Glucose 92 mg/dL (65-110); HDL Direct 68 mg/dL; Sodium 141 mmol/L (137-145); Triglycerides 48 mg/dL (<150)
[2024-02-23 07:25] LABS: LDL Cholesterol Direct 98 mg/dL
== END 2024-02-23 06:52 | disposition home or self-care (01) ==
LOC: ANHLAB 06:54
PROVIDERS: PCP Family Medicine; Visit Provider Family Medicine
DX: I10 Essential (primary) hypertension (principal); Z13.228 Encounter for screening for other metabolic disorders; Z13.220 Encounter for screening for lipoid disorders
CPT/HCPCS: 36415; 80053; 80061

== ENCOUNTER 2024-07-12 10:14 | Outpatient (CLI) | payer MEDICARE, SELFPAY ==
--- NOTE | ~2024-07-12 | XR_ITS ---
XR hand RT min 3V DATE: 07/12/2024 10:30 INDICATION: Osteoarthritis TECHNIQUE: 3 views right hand COMPARISON: None FINDINGS: There is osteopenia. There is polyarticular osteoarthritis, severe at the first carpometacarpal, first metacarpophalangeal joints, also involving the metacarpophalangeal and interphalangeal joints, especially the distal int erphalangeal joints of the second, third and fifth digits. No chondrocalcinosis or erosive change. No fracture, dislocation, periosteal reaction or bone destruction. IMPRESSION: Polyarticular osteoarthritis Osteopenia No fracture or dislocation Reviewed, dictated and finalized at location A.
== END 2024-07-12 10:15 | disposition home or self-care (01) ==
PROVIDERS: PCP Family Medicine; Visit Provider Plastic Surgery
DX: M19.041 Primary osteoarthritis, right hand (principal); M85.88 Other specified disorders of bone density and structure, other site
CPT/HCPCS: 73130

== ENCOUNTER 2024-08-16 07:09 | Outpatient (CLI) | payer MEDICARE, SELFPAY ==
--- NOTE | ~2024-08-16 | XR_ITS ---
XR chest 2V DATE: 08/16/2024 07:59 INDICATION: Shortness of breath for one month TECHNIQUE: PA and lateral views COMPARISON: 01/04 2022 2 view chest FINDINGS: There are prominent patchy infiltrates in both lower lung [place], involving primarily the l ower lobes. Minimal infiltrate in the right upper lobe. No pleural effusion or pulmonary vascular congestion or pneumothorax. Bilateral hyperinflation suggesting COPD. Normal heart size. There is aortic calcification and unfolding. Surgical clips, right upper quadrant consistent with cholecystectomy. Mild thoracic scoliosis, degenerative spurring of the thoracic spine. IMPRESSION: Patchy bilateral infiltrates, predominantly lower lobes , suggesting bilateral pneumonia COPD is suspected Reviewed, dictated and finalized at location A. CH PLANNER IMPRESSION: Patchy bilateral infiltrates, predominantly lower lobes , suggestin g bilateral pneumonia COPD is suspected
[2024-08-16 07:43] LABS: Basophils Absolute Auto 0.1 K/mm3 (0.0-0.1); Basophils Percent Auto 1.8 % (0.2-1.2); Eosinophils Absolute Auto 0.7 K/mm3 (0-0.3); Eosinophils Percent Auto 9.2 % (0-4.4); Hematocrit 31.4 % (37.0-47.0); Immature Granulocyte Absolute 0.02 K/mm3 (0.00-0.031); Immature Granulocyte Percent A 0.3 % (0-0.5); Lymphocytes Absolute Auto 1.53 K/mm3 (0.9-3.2); Lymphocytes Percent Auto 21.2 % (18.3-44.2); Mean Corpuscular HGB Conc 31.8 g/dl (32-36); Mean Corpuscular Hemoglobin 29.2 pg (26-34); Mean Corpuscular Volume 91.5 fl (80-100); Mean Platelet Volume 9.2 fl (7.4-10.4); Monocytes Absolute Auto 0.7 K/mm3 (0.1-0.6); Monocytes Percent Auto 9.2 % (2.6-8.5); Neutrophils Absolute Auto 4.2 K/mm3 (1.3-6.7); Neutrophils Percent Auto 58.3 % (45.5-73.1); Platelet Count Result 333 k/mm3 (150-375); Red Blood Count 3.43 M/mm3 (4.2-5.4); Red Cell Distribution Width 13.6 % (11.5-14.5); White Blood Count 7.2 K/mm3 (4.5-10.0)
[2024-08-16 08:07] LABS: Alanine Aminotransferase 23 U/L (6-35); Albumin Level 3.5 g/dL (3.5-5.1); Alkaline Phosphatase 75 U/L (38-126); Anion Gap 2 mmol/L (4-12); Aspartate Amino Transferase 33 U/L (14-36); Bilirubin,Total 0.7 mg/dL (0.2-1.3); Blood Urea Nitrogen 11 mg/dL (7-17); Calcium 9.1 mg/dL (8.4-10.2); Carbon Dioxide 29 mmol/L (22-30); Chloride 107 mmol/L (98-107); Estimated Glomerular Filt Rate 54; Glucose 87 mg/dL (65-110); Potassium 3.5 mmol/L (3.4-5.0); Sodium 138 mmol/L (137-145)
[2024-08-16 08:58] LABS: Vitamin B12 > 1000.0 pg/mL (239-931)
== END 2024-08-16 07:10 | disposition home or self-care (01) ==
PROVIDERS: PCP Family Medicine; Visit Provider Student in an Organized Health Care Education/Training Program
DX: R06.02 Shortness of breath (principal); R53.83 Other fatigue; J32.9 Chronic sinusitis, unspecified; R91.8 Other nonspecific abnormal finding of lung field
CPT/HCPCS: 36415; 71046; 80053; 82607; 84443; 85025

== ENCOUNTER 2024-08-20 10:55 | Outpatient (CLI) | payer MEDICARE, SELFPAY ==
[2024-08-20 12:22] LABS: Iron 50 ug/dL (37-170)
[2024-08-20 12:32] LABS: Percent Iron Saturation 14 % (20-50)
[2024-08-20 12:37] LABS: Vitamin D 25 Hydroxy 64.4 ng/mL
== END 2024-08-20 10:56 | disposition home or self-care (01) ==
PROVIDERS: PCP Student in an Organized Health Care Education/Training Program; Visit Provider Student in an Organized Health Care Education/Training Program
DX: D50.8 Other iron deficiency anemias (principal); E55.9 Vitamin D deficiency, unspecified; D64.9 Anemia, unspecified
CPT/HCPCS: 36415; 82306; 82728; 83540; 83550

== ENCOUNTER 2024-08-22 08:09 | Emergency (ER) | payer MEDICARE, SELFPAY ==
[2024-08-22] VITALS (9 sets, daily range): BP systolic 103–139; BP diastolic 40–63; PULSE 87–108; RESP 14–26; TEMP 36.7; O2SAT 98–100
--- NOTE | ~2024-08-22 | CT_ITS ---
EXAMINATION: CTA chest PE protocol DATE: 08/22/2024 11:11 INDICATION: Pneumonia with worsening difficulty with breathing. TECHNIQUE: Computed tomography (CT) pulmonary angiogram of the chest was performed with 100 mL Omnipa que-350 intravenous contrast. Additional 3D reconstructions utilizing coronal maximum intensity proje ction (MIP) were performed. Automated exposure control and iterative reconstruction technique were em ployed. The dose-length product was 148.02 mGy-cm. COMPARISON: None FINDINGS: No pulmonary embolism. Bilateral patchy groundglass opacities with some associated irregular septal l ine thickening most prominent in the basilar segments of the bilateral lower lobes and to lesser degr ee in the remainder of the more cephalad lungs. Pneumatocele at the basilar left lower lobe. Calcifie d left lower lobe nodule along with calcified mediastinal and left hilar lymph nodes and scattered he patic and splenic calcifications, all consistent with old granulomatous disease. No pleural effusion. Heart size is normal. No pericardial effusion. Thoracic aorta normal caliber with no dissection. No pathologically enlarged abdominal or pelvic lymphadenopathy. Bilateral breast implants. Cholecystecto my clips at the gallbladder fossa. Severe spondylosis most prominent at the lower cervical and lower thoracic spine. IMPRESSION: 1. No pulmonary embolism. 2. Patchy groundglass opacities and irregular septal line thickening most prominent in the basilar se gments of the bilateral lower lobes which could be due to pneumonia including atypical pneumonia such as COVID. Differential would include hypersensitivity or drug induced pneumonitis, effacement of pne umonia, organizing pneumonia or nonspecific interstitial pneumonia pattern chronic interstitial lung disease. Reviewed, dictated and finalized at location A. EDICAL SPECIALIST IMPRESSION: 1. No pulmonary embolism. 2. Patchy groundglass opacities and irregular septal line thickening most promi nent in the basilar segments of the bilateral lower lobes which could be due to pneumonia including atypical pneumonia such as COVID. Differential would inclu de hypersensitivity or drug induced pneumonitis, effacement of pneumonia, organ izing pneumonia or nonspecific interstitial pneumonia pattern chronic interstit ial lung disease.
--- NOTE | ~2024-08-22 | XR_ITS ---
XR chest 1V portable 08/22/2024 09:12 Indication: Shortness of breath. History of pneumonia. Procedure: AP portable chest Comparison: Comparison to multiple prior studies sequentially, with oldest reviewed study dated 12/28. Findings: There is improving bibasilar airspace disease, compatible with pneumonia. No pleural effusi on, edema or pneumothorax. No acute osseous abnormality. There are cholecystectomy clips. There is ad vanced thoracic and upper lumbar spondylosis with scoliosis. Impression: 1: Improving bibasilar pneumonia. Reviewed, dictated and finalized at location B. NGEUR OPERATOR Impression: 1: Improving bibasilar pneumonia.
--- NOTE | 2024-08-22 08:29 | ECG_ITS ---
Test Date: 2024-08-22 08:42:35 Measurements Intervals [place] Rate: 96 P: 53 CO: 113 QRS: 60 QRSD: 79 T: 49 QT: 349 QTc: 441 Interpretive Statements SINUS RHYTHM WITH SHORT CO INTERVAL POSSIBLE LEFT ATRIAL ENLARGEMENT [-0.1mV P-WAVE IN V1/V2] No previous ECG available for comparison Electronically Signed On 08-22-2024 18:40:47 LINE DRIVER by Katheryn Montiel M.D.
[2024-08-22 09:22] LABS: Basophils Absolute Auto 0.2 K/mm3 (0.0-0.1); Basophils Percent Auto 1.4 % (0.2-1.2); Eosinophils Absolute Auto 0.4 K/mm3 (0-0.3); Eosinophils Percent Auto 3.9 % (0-4.4); Hematocrit 32.4 % (37.0-47.0); Hemoglobin 10.4 g/dL (12.0-15.0); Immature Granulocyte Absolute 0.05 K/mm3 (0.00-0.031); Immature Granulocyte Percent A 0.5 % (0-0.5); Lymphocytes Absolute Auto 1.26 K/mm3 (0.9-3.2); Lymphocytes Percent Auto 11.4 % (18.3-44.2); Mean Corpuscular HGB Conc 32.1 g/dl (32-36); Mean Corpuscular Hemoglobin 29.2 pg (26-34); Mean Platelet Volume 9.5 fl (7.4-10.4); Monocytes Absolute Auto 0.6 K/mm3 (0.1-0.6); Monocytes Percent Auto 5.7 % (2.6-8.5); Neutrophils Absolute Auto 8.5 K/mm3 (1.3-6.7); Neutrophils Percent Auto 77.1 % (45.5-73.1); Platelet Count Result 311 k/mm3 (150-375); Red Blood Count 3.56 M/mm3 (4.2-5.4); Red Cell Distribution Width 13.6 % (11.5-14.5)
[2024-08-22 09:31] LABS: Lactic Acid Reflex 1.4 mmol/L (0.7-2.0)
[2024-08-22 09:33] LABS: Alanine Aminotransferase 20 U/L (6-35); Albumin Level 3.8 g/dL (3.5-5.1); Alkaline Phosphatase 81 U/L (38-126); Anion Gap 6 mmol/L (4-12); Aspartate Amino Transferase 36 U/L (14-36); Bilirubin,Total 0.8 mg/dL (0.2-1.3); Blood Urea Nitrogen 18 mg/dL (7-17); Calcium 9.6 mg/dL (8.4-10.2); Carbon Dioxide 24 mmol/L (22-30); Chloride 108 mmol/L (98-107); Estimated CRCL calculation 32 ml/min; Estimated Glomerular Filt Rate 54; Glucose 90 mg/dL (65-110); Magnesium 1.7 mg/dL (1.6-2.3); Potassium 3.8 mmol/L (3.4-5.0); Sodium 138 mmol/L (137-145)
[2024-08-22 09:39] LABS: D Dimer 1.27 ug/mL (<0.48)
[2024-08-22 09:42] LABS: NT Pro B Type Natriuretic Pept 344 pg/mL (19.9-100)
[2024-08-22 09:44] LABS: Troponin I < 0.012 ng/mL (0.000-0.034)
--- NOTE | 2024-08-22 11:42 | ED.SOB ---
HPI - SOB/Dyspnea General Chief Complaint: Shortness of Breath/Dyspnea Stated Complaint: SOB, on meds for pneumonia Time Seen by Provider: 08/22/24 08:29 History of Present Illness HPI Narrative: Patient presenting with shortness of breath, she has been getting treated for pneumonia for weeks and has been on her 3rd course of antibiotics without significant improvement in her symptoms. Related Data Home Medications ?Medication ?Instructions ?Recorded ?Confirmed ?Last Taken ?Type aspirin 81 mg tablet,delayed 81 mg PO DAILY 07/24/19 07/17/24 07/16/24 History release (Margie Low Dose Aspirin) cholecalciferol (vitamin D3) 50 2,000 unit PO DAILY 07/24/19 07/17/24 07/17/24 History mcg (2,000 unit) tablet (Vitamin D3) krill 1,000 mg-omega-3 230 mg-dha 1 cap PO DAILY 07/24/19 07/17/24 07/16/24 History 60 rx-dja-ipsxlfxtk-astaxan capsule (MegaRed Paxton-3 Krill Oil) lysine 500 mg tablet (L-Lysine) 500 mg PO DAILY 07/24/19 07/17/24 07/16/24 History multivit,Ca,iron,myu-KM-fbguymp-xqwscwu-shzr-EQQD 1 cap PO DAILY 07/24/19 07/17/24 07/16/24 History 3 mg-133 mcg capsule (Body, Hair, Skin and Nails) estradiol 0.05 mg-norethindrone 1 patch transdermal WEEKLY 06/21/23 07/17/24 07/16/24 History 0.25 mg/24 hr semiwkly transderm patch (CombiPatch) amitriptyline 25 mg tablet 25 mg PO DAILY 07/01/24 07/17/24 07/16/24 History ascorbic acid (vitamin C) 60 mg 60 mg PO DAILY 07/01/24 07/17/24 07/16/24 History chewable tablet carvedilol 3.125 mg tablet 3.125 mg PO BID 07/01/24 07/17/24 07/17/24 History Allergies Allergy/AdvReac Type Severity Reaction Status Date / Time rosuvastatin AdvReac Severe Unknown Verified 08/15/24 15:23 amoxicillin AdvReac Mild Nausea Verified 08/15/24 15:23 azithromycin AdvReac Mild Vomiting Verified 08/15/24 15:23 doxycycline AdvReac Mild Nausea and Verified 08/15/24 15:23 Vomiting Review of Systems Review of Systems: All systems reviewed & are unremarkable except as noted in HPI and below [facility] Past Medical History Medical History (Updated 08/22/24 @ 11:41 by Tawana Kahn MD) Inflammation Myalgia Statin intolerance Abnormal bone density screening Carotid stenosis, left CAP (community acquired pneumonia) Abnormal TSH COVID-19 Palpitations Acute sinusitis BMI 21.0-21.9, adult Burning tongue syndrome Encounter for routine adult health examination without abnormal findings Essential hypertension Hormone replacement therapy (HRT) Vogel's neuroma of right foot On shelter drug therapy Parotiditis Posterior cervical adenopathy Pulmonary nodule Pain of back and right lower extremity Seasonal allergies Carpal tunnel syndrome of right wrist resolved after surgery in Oct 2020 Left shoulder pain Carotid arterial disease Carotid bruit Right knee pain Screening mammogram, encounter for Marijuana use Hypovitaminosis D Lumbar spondylolysis Post-menopausal Mixed hyperlipidemia Colon cancer screening Arthritis PVD (peripheral vascular disease) HTN (hypertension) Surgical History Surgical History History of left-sided carotid endarterectomy Family History Family History Mother Cerebrovascular accident Father Acute myocardial infarction Other Arthritis Depression Social History Social History Smoking packs per day: 0.5 Smoking cigarettes per day: 10.0 Years smoked: 20 Smoking pack-years: 10.00 Smoking status: Never smoker Tobacco type: cigarettes Second hand tobacco smoke exposure: No Smoking end date: 01/12/02 Alcohol intake: current Drinks per week: 2 Substance use: never Substance use type: does not use Do You Feel Safe in your Home?: Yes Lack of Transportation: No Lack of Food: Never True Current Housing: I Have Housing Concerned About Future Housing: No Difficulty Paying Gas/Electric Bills: No Difficulty Paying for Meds: No Currently Unemployed: No Education: Trade/Vocational Certificate Difficulty w/ Childcare or Family Care: No Living arrangements: alone Gender identity (if verbalized by the patient): Female Spiritual care concerns: No Exam Narrative: EXAMINATION OF ORGAN SYSTEMS/BODY AREAS: Constitutional: Vital signs per nursing GENERAL:[No acute distress, non-toxic appearing.] HEAD: Normal with no signs of head trauma. EYES: EOMI, conjunctiva normal ENT: Hearing grossly intact LUNGS: Nonlabored breathing. Slightly diminished breath sounds bilaterally HEART: [Regular rate and rhythm] ABD: [Soft], [nontender to palpation] EXT: Normal range of motion SKIN: [No rashes or lesions.] NEURO: [Alert and oriented x 3. No gross focal sensory or strength deficits.] PSYCH: Normal affect Course Vital Signs Vital signs: Vital Signs Pulse Rate 105 H 08/22/24 08:31 Respiratory Rate 16 08/22/24 08:31 Blood Pressure 111/56 L 08/22/24 08:31 Pulse Oximetry 100 08/22/24 08:31 Temperature 98.0 F 08/22/24 08:35 Pulse Rate 91 08/22/24 12:01 Respiratory Rate 25 H 08/22/24 12:01 Blood Pressure 128/47 L 08/22/24 12:01 Pulse Oximetry 98 08/22/24 12:01 Oxygen Delivery Room Air 08/22/24 08:35 MDM - SOB/Dyspnea MDM Narrative Medical decision making narrative: Patient presenting with shortness of breath, she has been getting treated for pneumonia for weeks and has been on her 3rd course of antibiotics without significant improvement in her symptoms. As she has already been on multiple rounds of antibiotics I have very low concern for pneumonia causing her symptoms, will rule out PE and ACS, EKG on my independent interpretation shows normal sinus rhythm with short ND interval, rate 96, QRS 79, QTC 441, normal axis, no ST elevations or depression or signs of acute ischemia or arrhythmia Chest x-ray with improved consolidations CTA PE obtained showing possible pneumonitis(?), pneumonia, etc. no PE. Discussed with patient, will trial steroids since she has used before and had improved. Will have her follow-up with pulmonology given her prolonged symptoms and return for any further issues. Lab Data 08/22/24 09:14 08/22/24 09:14 Labs: Lab Results 08/22/24 Range/Units 09:14 WBC 11.0 H (4.5-10.0) K/mm3 RBC 3.56 L (4.2-5.4) M/mm3 Hgb 10.4 L (12.0-15.0) g/dL Hct 32.4 L (37.0-47.0) % MCV 91.0 (80-100) fl MCH 29.2 (26-34) pg MCHC 32.1 (32-36) g/dl RDW 13.6 (11.5-14.5) % Plt Count 311 (150-375) k/mm3 MPV 9.5 (7.4-10.4) fl Immature Gran % (Auto) 0.5 (0-0.5) % Neut % (Auto) 77.1 H (45.5-73.1) % Lymph % (Auto) 11.4 L (18.3-44.2) % [place] % (Auto) 5.7 (2.6-8.5) % Eos % (Auto) 3.9 (0-4.4) % Baso % (Auto) 1.4 H (0.2-1.2) % Lymph # (Auto) 1.26 (0.9-3.2) K/mm3 [place] # (Auto) 0.6 (0.1-0.6) K/mm3 Eos # (Auto) 0.4 H (0-0.3) K/mm3 Baso # (Auto) 0.2 H (0.0-0.1) K/mm3 Abs Immat Gran (auto) 0.05 H (0.00-0.031) K/mm3 Absolute Neuts (auto) 8.5 H (1.3-6.7) K/mm3 Absolute Nucleated RBC 0.000 (0.0-0.012) K/mm3 Nucleated RBC % 0.0 (0.0-0.2) % D-Dimer 1.27 H (<0.48) ug/mL Sodium 138 (137-145) mmol/L Potassium 3.8 (3.4-5.0) mmol/L Chloride 108 H (98-107) mmol/L Carbon Dioxide 24 (22-30) mmol/L Anion Gap 6 (4-12) mmol/L BUN 18 H (7-17) mg/dL Creatinine 1.00 (0.7-1.0) mg/dL Estim Creat Clear Calc 32 ml/min Estimated GFR 54 L (59 - ) Glucose 90 (65-110) mg/dL Lactic Acid 1.4 (0.7-2.0) mmol/L Calcium 9.6 (8.4-10.2) mg/dL Magnesium 1.7 (1.6-2.3) mg/dL Total Bilirubin 0.8 (0.2-1.3) mg/dL AST 36 (14-36) U/L ALT 20 (6-35) U/L Alkaline Phosphatase 81 (38-126) U/L Troponin I < 0.012 (0.000-0.034) ng/mL NT-Pro-B Natriuret Pep 344 H (19.9-100) pg/mL Total Protein 7.0 (6.3-8.2) g/dL Albumin 3.8 (3.5-5.1) g/dL Discharge Plan Discharge Clinical Impression: Shortness of breath Patient Disposition: Home, Self-Care Condition: Stable Instructions: Shortness of Breath (ED) Additional Instructions: Please follow up with your doctor; you can always return for any further issues. Patient Language: Polish Prescriptions: New prednisone 20 mg tablet 40 mg PO DAILY 4 Days Qty: 8 0RF No Action CombiPatch 0.05-0.25 mg/24 hr patch semiweekly 1 patch transdermal WEEKLY aspirin [Margie Low Dose Aspirin] 81 mg Tablet,Delayed Release (Dr/Ec) 81 mg PO DAILY lysine [L-Lysine] 500 mg Tablet 500 mg PO DAILY Body, Hair, Skin and Nails 3-133 mg-mcg Capsule 1 cap PO DAILY cholecalciferol (vitamin D3) [Vitamin D3] 2,000 unit Tablet 2,000 unit PO DAILY xyrlq-uz-7-pzm-bfr-pzxgult-ast [MegaRed Paxton-3 Krill Oil] 1,000-230-60 mg Capsule 1 cap PO DAILY fluticasone propionate [Flonase Allergy Relief] 50 mcg/actuation spray,suspension 2 spray intranasal DAILY Qty: 48 1RF Rx Instructions: administer into each nostril levofloxacin 750 mg tablet 750 mg PO DAILY Qty: 5 0RF ascorbic acid (vitamin C) 60 mg Tablet,Chewable 60 mg PO DAILY carvedilol 3.125 mg tablet 3.125 mg PO BID amitriptyline 25 mg tablet 25 mg PO DAILY Follow-up/Referrals: Flynn Menendez APRN [Primary Care Provider] - Justin Gutierrez MD [Physician] - 2 Days
[2024-08-22] MEDS: predniSONE 20 MG TABLET 40 MG PO (12:01)
== END 2024-08-22 12:00 | disposition home or self-care (01) ==
PROVIDERS: Emergency Provider Emergency Medicine; PCP Student in an Organized Health Care Education/Training Program
DX: R06.02 Shortness of breath (principal); Z79.82 Long term (current) use of aspirin; I10 Essential (primary) hypertension; I25.10 Atherosclerotic heart disease of native coronary artery without angina pectoris
CPT/HCPCS: 36415; 71045; 71275; 80053; 83605; 83735; 83880; 84484; 85025; 85380; 93005; 99284; J7512; Q9967

== ENCOUNTER 2024-09-11 08:04 | Outpatient (CLI) | payer MEDICARE, SELFPAY ==
[2024-09-11 12:35] LABS: Basophils Absolute Auto 0.1 K/mm3 (0.0-0.1); Basophils Percent Auto 1.6 % (0.2-1.2); Eosinophils Absolute Auto 0.7 K/mm3 (0-0.3); Eosinophils Percent Auto 8.1 % (0-4.4); Hematocrit 28.8 % (37.0-47.0); Hemoglobin 8.7 g/dL (12.0-15.0); Immature Granulocyte Absolute 0.03 K/mm3 (0.00-0.031); Immature Granulocyte Percent A 0.4 % (0-0.5); Lymphocytes Absolute Auto 1.72 K/mm3 (0.9-3.2); Lymphocytes Percent Auto 21.2 % (18.3-44.2); Mean Corpuscular HGB Conc 30.2 g/dl (32-36); Mean Corpuscular Volume 89.4 fl (80-100); Mean Platelet Volume 9.2 fl (7.4-10.4); Monocytes Absolute Auto 0.7 K/mm3 (0.1-0.6); Monocytes Percent Auto 8.1 % (2.6-8.5); Neutrophils Absolute Auto 4.9 K/mm3 (1.3-6.7); Neutrophils Percent Auto 60.6 % (45.5-73.1); Platelet Count Result 378 k/mm3 (150-375); Red Blood Count 3.22 M/mm3 (4.2-5.4); Red Cell Distribution Width 13.7 % (11.5-14.5); White Blood Count 8.1 K/mm3 (4.5-10.0)
== END 2024-09-11 08:05 | disposition home or self-care (01) ==
LOC: ANHGOSHLAB 08:06
PROVIDERS: PCP Student in an Organized Health Care Education/Training Program; Visit Provider Student in an Organized Health Care Education/Training Program
DX: D64.9 Anemia, unspecified (principal)
CPT/HCPCS: 36415; 85025

== ENCOUNTER 2024-09-11 08:24 | Outpatient (CLI) | payer MEDICARE, SELFPAY ==
--- NOTE | ~2024-09-11 | XR_ITS ---
Clinical Indication: Pneumonia PA and lateral views of the chest: Comparison: 08/22/2024 Findings: There is hazy bibasilar airspace disease. No pleural effusion. Cardiomediastinal silhouett e is within normal limits. Bones and soft tissues are unremarkable. Impression: Hazy bibasilar airspace disease. Correlate for bibasilar pulmonary edema versus bibasilar pneumonia. Reviewed, dictated and finalized at location . DIRECTOR Impression: Hazy bibasilar airspace disease. Correlate for bibasilar pulmonary edema versus bibasilar pneumonia.
== END 2024-09-11 08:25 | disposition home or self-care (01) ==
PROVIDERS: PCP Student in an Organized Health Care Education/Training Program; Visit Provider Student in an Organized Health Care Education/Training Program
DX: J84.89 Other specified interstitial pulmonary diseases (principal); J18.9 Pneumonia, unspecified organism
CPT/HCPCS: 71046

== ENCOUNTER 2024-09-12 07:49 | Emergency (ER) | payer MEDICARE, SELFPAY ==
[2024-09-12] VITALS (9 sets, daily range): BP systolic 106–142; BP diastolic 47–83; PULSE 76–96; RESP 16–19; TEMP 36.4; O2SAT 96–100
--- NOTE | ~2024-09-12 | CT_ITS ---
EXAMINATION: CTA chest PE protocol DATE: 09/12/2024 11:56 INDICATION: Shortness of breath. TECHNIQUE: Computed tomography angiography (CTA) of the chest was performed with 100 mL Omnipaque-350 intravenous contrast timed to evaluate the pulmonary arteries. Coronal maximum intensity projection 3D-reconstructions were created by the technologist. Automated exposure control and iterative reconst ruction technique were employed. The dose-length product was 135.41 mGy-cm. COMPARISON: Chest CT 08/22/2024, 01/12/16, CT abdomen and pelvis 11/03/2019, chest two views 12/28/21 FINDINGS: There is mild emphysema. There is chronic mild scarring at the lung apices. There are groun dglass opacities associated with septal thickening involving all lobes with a lower lobe predominance . There are are subpleural bands in the lower lobes. A calcified left lung nodule and calcified left hilar and mediastinal lymph nodes are consistent with old granulomatous disease. There is mild left h ilar lymphadenopathy. No pleural effusion. The heart size is normal. No pericardial effusion. There i s no pulmonary embolus. There are bilateral breast implants. Calcifications in the spleen are consist ent with old granulomatous disease. There are changes of cholecystectomy. There is severe cervical an d thoracic spondylosis. There are old healed right rib fractures. IMPRESSION: 1. No pulmonary embolus. 2. Diffuse lung disease, stable from 08/22/2024 and new from 12/28/21, most likely atypical pneumonia or diffuse alveolar damage. 3. Mild emphysema. Reviewed, dictated and finalized at location A. [employer] IMPRESSION: 1. No pulmonary embolus. 2. Diffuse lung disease, stable from 08/22/2024 and new from 12/28/21, most like ly atypical pneumonia or diffuse alveolar damage. 3. Mild emphysema.
--- NOTE | ~2024-09-12 | XR_ITS ---
EXAMINATION: XR chest 1V portable DATE: 09/12/2024 10:29 INDICATION: Shortness of breath. TECHNIQUE: A single frontal view of the chest was obtained. COMPARISON: Chest 2 views 09/11/24, 08/22/24, 12/28/21, chest CT 08/22/2024 FINDINGS: There are interstitial and airspace opacities in all right lung zones and in left lower king g zone. No pleural effusion or pneumothorax. The heart size is normal. Surgical clips in the right up per quadrant are likely from cholecystectomy. There are surgical clips in left neck. There are old he aled right rib fractures. Breast implants are noted. IMPRESSION: 1. Stable diffuse lung disease, most likely atypical pneumonia. Reviewed, dictated and finalized at location [facility]. [employer]
--- NOTE | 2024-09-12 10:04 | ED_ITS ---
HPI - SOB/Dyspnea General Chief Complaint: Shortness of Breath/Dyspnea Stated Complaint: sob, pna Time Seen by Provider: 09/12/24 09:51 Source: patient Mode of arrival: ambulatory Limitations: no limitations History of Present Illness HPI Narrative: Patient presents with shortness of breath and in particular dyspnea on exertion even with minimal activity. She was diagnosed with double pneumonia on x-ray just before and was placed on antibiotics. She did seem to be worsening and presented to the emergency department on 08/22/24 at which time she states an x-ray and labs were performed and she seemed to be improving. She had another x-ray and labs performed yesterday by her primary care physician, Flynn Menendez, and was told things were worse including both the x-ray, her anemia which she has at baseline, as well as her pro-BNP being elevated. She denies any orthopnea. She does endorse some paroxysmal nocturnal dyspnea however she states it is more that she wakes up slightly short of breath but with an incredibly dry mouth. Patient has had a 15 lb weight loss in the past 1 month by report. Patient states despite this she feels subjectively like her appetite has been improving, although she says her daughter says she has any new like she used to. 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 No chest pain except some discomfort when breathing in. No LE edema. No cough or fever. Former smoker (quit 20 years ago). No cardiac history. Has previously been anemic but no prior work up or transfusions. Related Data Home Medications ?Medication ?Instructions ?Recorded ?Confirmed ?Last Taken ?Type aspirin 81 mg tablet,delayed 81 mg PO DAILY 07/24/19 09/01/24 07/16/24 History release (Margie Low Dose Aspirin) cholecalciferol (vitamin D3) 50 2,000 unit PO DAILY 07/24/19 09/01/24 07/17/24 History mcg (2,000 unit) tablet (Vitamin D3) krill 1,000 mg-omega-3 230 mg-dha 1 cap PO DAILY 07/24/19 09/01/24 07/16/24 History 60 op-adb-unndzzjhm-astaxan capsule (MegaRed [employer] Krill Oil) lysine 500 mg tablet (L-Lysine) 500 mg PO DAILY 07/24/19 09/01/24 07/16/24 History multivit,Ca,iron,fff-PN-jxuymkw-cpatqtn-sygb-ILTV 1 cap PO DAILY 07/24/19 09/01/24 07/16/24 History 3 mg-133 mcg capsule (Body, Hair, Skin and Nails) amitriptyline 25 mg tablet 25 mg PO DAILY 07/01/24 09/01/24 07/16/24 History ascorbic acid (vitamin C) 60 mg 60 mg PO DAILY 07/01/24 09/01/24 07/16/24 History chewable tablet carvedilol 3.125 mg tablet 3.125 mg PO BID 07/01/24 09/01/24 07/17/24 History Allergies Allergy/AdvReac Type Severity Reaction Status Date / Time rosuvastatin AdvReac Severe Unknown Verified 09/01/24 13:21 azithromycin AdvReac Mild Vomiting Verified 09/01/24 13:21 doxycycline AdvReac Mild Nausea and Verified 09/01/24 13:21 Vomiting PMFSH Past Medical History Medical History Inflammation Myalgia Statin intolerance Abnormal bone density screening Carotid stenosis, left CAP (community acquired pneumonia) Abnormal TSH COVID-19 Palpitations Acute sinusitis BMI 21.0-21.9, adult Burning tongue syndrome Encounter for routine adult health examination without abnormal findings Essential hypertension Hormone replacement therapy (HRT) Vogel's neuroma of right foot On assisted drug therapy Parotiditis Posterior cervical adenopathy Pulmonary nodule Pain of back and right lower extremity Seasonal allergies Carpal tunnel syndrome of right wrist resolved after surgery in Oct 2020 Left shoulder pain Carotid arterial disease Carotid bruit Right knee pain Screening mammogram, encounter for Marijuana use Hypovitaminosis D Lumbar spondylolysis Post-menopausal Mixed hyperlipidemia Colon cancer screening Arthritis PVD (peripheral vascular disease) HTN (hypertension) Surgical History Surgical History History of left-sided carotid endarterectomy Family History Family History Mother Cerebrovascular accident Father Acute myocardial infarction Sibling CVID (common variable immunodeficiency) Other Arthritis Depression Social History Social History Smoking packs per day: 0.5 Smoking cigarettes per day: 10.0 Years smoked: 20 Smoking pack-years: 10.00 Smoking status: Former smoker Tobacco type: cigarettes Second hand tobacco smoke exposure: No Smoking end date: 01/12/02 Alcohol intake: current Alcohol use details: rarely Substance use: never Substance use type: does not use Do You Feel Safe in your Home?: Yes Lack of Transportation: No Lack of Food: Never True Current Housing: I Have Housing Concerned About Future Housing: No Difficulty Paying Gas/Electric Bills: No Difficulty Paying for Meds: No Currently Unemployed: No Education: Trade/Vocational Certificate Difficulty w/ Childcare or Family Care: No Living arrangements: alone Gender identity (if verbalized by the patient): Female Spiritual care concerns: No Exam 2 Narrative: GENERAL: Well-appearing, well-nourished, and in no acute distress. HEAD: Normocephalic, atraumatic. EYES: Non injected, non icteric ENT: Nares clear, no rhinorrhea or epistaxis. NECK: Supple. CHEST: Speaking in full sentences. No respiratory distress. Lungs clear to auscultation bilaterally. HEART: Regular rate and rhythm. . ABDOMEN: Soft, nondistended. Rectal: Normal rectal tone. No gross or occult blood. EXTREMITIES: Normal range of motion. No lower extremity edema. SKIN: Warm, dry, no rash. NEURO: No focal deficits. Alert and oriented x3. PSYCH: Normal mood and affect. Course Vital Signs Vital signs: Vital Signs Temperature 97.6 F 09/12/24 07:51 Pulse Rate 96 09/12/24 07:51 Respiratory Rate 16 09/12/24 07:51 Blood Pressure 130/52 L 09/12/24 07:51 Pulse Oximetry 100 09/12/24 07:51 Temperature 97.6 F 09/12/24 07:51 Pulse Rate 76 09/12/24 14:15 Respiratory Rate 16 09/12/24 14:15 Blood Pressure 122/83 09/12/24 14:15 Pulse Oximetry 97 09/12/24 14:15 Oxygen Delivery Room Air 09/12/24 11:21 MDM - SOB/Dyspnea MDM Narrative Medical decision making narrative: Patient presents after PCP advised her to go to the ED. Diagnosed with double pneumonia before Thanksgiving. Had presented here 08/22/24 and labs/imaging obtained. PCP repeated these yesterday and she was told they were worse. In the emergency department she is afebrile with acceptable vital signs although a low diastolic blood pressure (but MAP 78mmHg) ProBNP in August was 344. It is 384 today and I did discuss with the patient that this is normal as the reference range for the assay changes based on age. Evidence of atypical PNA on imaging. Atypical antibiotic coverage includes: Quinolones, macrolide, tetracyclines, chloramphenicol (though lower cure rate and higher relapse rates), streptogramins or ketolides. She has already been on 3 antibiotics per ER note in August: Amoxicillin, Augmentin, and cefdinir. Patient's dimer elevated slightly greater than 1 so will proceed with imaging. clinical lab technologist had come to go get patient but she had questions about why. I did go to bedside and explain the rationale and she verifies understanding and was in agreement. She thought because she had had a CT scan performed in August she would not need 1 again. In this case, given her longstanding symptoms and her age relative to the risk of radiation exposure, it is reasonable to proceed nevertheless. She has a normocytic anemia, approximately a 2 g drop from previous in August 2024. I did perform digital rectal exam which was negative for occult blood. Patient denies any hematuria, hematochezia, melena, hemoptysis, hematemesis, or trauma. She states she had received routine colonoscopy use and had 1 last in 2018 and is due for 1 2018. She states she has never had a workup for her longstanding anemia and has never required a blood transfusion. She does not take iron. Advised on the recommendations/directions for this and provided Rx. Telithromycin is not available, patient has an allergy to azithromycin (vomiting) and streptomycin not available p.o.. There is high risk of tendon rupture with use of qunolones given patient's age so original plan was to defer this decision between her and her doctor. However, patient states that she was recently prescribed Levaquin and that was the last antibiotic she had been on. Overall though, it does not appear antibiotics are necessary. Differential Diagnosis Differential diagnosis: Likely congestive heart failure, community acquired pneumonia, pulmonary embolism and other (acute viral syndrome; interstitial lung disease; COPD; sequelae of PNA) Medical Records Attestation: I reviewed the patient's medical records. Medical records narrative: CXR from 09/11/24 is reviewed: Hazy bibasilar airspace disease. Correlate for bibasilar pulmonary edema versus bibasilar pneumonia. Lab Data Attestation: I reviewed the patient's lab results. 09/12/24 10:39 09/12/24 10:39 Labs: Lab Results 09/12/24 Range/Units 10:39 WBC 7.8 (4.5-10.0) K/mm3 RBC 3.10 L (4.2-5.4) M/mm3 Hgb 8.5 L (12.0-15.0) g/dL Hct 26.9 L (37.0-47.0) % MCV 86.8 (80-100) fl MCH 27.4 (26-34) pg MCHC 31.6 L (32-36) g/dl RDW 13.6 (11.5-14.5) % Plt Count 349 (150-375) k/mm3 MPV 8.9 (7.4-10.4) fl Immature Gran % (Auto) 0.3 (0-0.5) % Neut % (Auto) 62.5 (45.5-73.1) % Lymph % (Auto) 20.4 (18.3-44.2) % [place] % (Auto) 8.5 (2.6-8.5) % Eos % (Auto) 6.9 H (0-4.4) % Baso % (Auto) 1.4 H (0.2-1.2) % Lymph # (Auto) 1.59 (0.9-3.2) K/mm3 [place] # (Auto) 0.7 H (0.1-0.6) K/mm3 Eos # (Auto) 0.5 H (0-0.3) K/mm3 Baso # (Auto) 0.1 (0.0-0.1) K/mm3 Abs Immat Gran (auto) 0.02 (0.00-0.031) K/mm3 Absolute Neuts (auto) 4.9 (1.3-6.7) K/mm3 Absolute Nucleated RBC 0.000 (0.0-0.012) K/mm3 Nucleated RBC % 0.0 (0.0-0.2) % PT 13.1 (11.1-14.7) Seconds INR 1.0 APTT 30.6 (22.3-36.8) Seconds D-Dimer 1.03 H (<0.48) ug/mL Sodium 136 L (137-145) mmol/L Potassium 4.3 (3.4-5.0) mmol/L Chloride 108 H (98-107) mmol/L Carbon Dioxide 27 (22-30) mmol/L Anion Gap 1 L (4-12) mmol/L BUN 14 (7-17) mg/dL Creatinine 0.80 (0.7-1.0) mg/dL Estim Creat Clear Calc 40 ml/min Estimated GFR > 60 (59 - ) Glucose 90 (65-110) mg/dL Calcium 9.5 (8.4-10.2) mg/dL Magnesium 1.7 (1.6-2.3) mg/dL Total Bilirubin 0.8 (0.2-1.3) mg/dL AST 27 (14-36) U/L ALT 16 (6-35) U/L Alkaline Phosphatase 93 (38-126) U/L Troponin I < 0.012 (0.000-0.034) ng/mL NT-Pro-B Natriuret Pep 384 H (19.9-100) pg/mL Total Protein 7.0 (6.3-8.2) g/dL Albumin 3.7 (3.5-5.1) g/dL Influenza A (RT-PCR) Negative (Negative) Influenza B (RT-PCR) Negative (Negative) RSV (RT-PCR) Negative (Negative) SARS-CoV-2 RNA (RT-PCR) Negative (Negative) Imaging Data Attestation: I personally reviewed and interpreted this imaging study as follows: My impression: Basilar infiltrate left greater than right on my independent interpretation of CXR Radiologist's impression: Impressions Chest X-Ray 09/12/24 10:31 IMPRESSION: 1. Stable diffuse lung disease, most likely atypical pneumonia. Chest CTA 09/12/24 12:03 IMPRESSION: 1. No pulmonary embolus. 2. Diffuse lung disease, stable from 08/22/2024 and new from 12/28/21, most likely atypical pneumonia or diffuse alveolar damage. 3. Mild emphysema. ECG Data EKG #1: Attestation: I personally reviewed and interpreted this ECG as follows: ECG completion date: 09/12/24 ECG completion time: 10:40 Interpretation: Normal sinus rhythm at a rate of 79 beats per minute. OK interval 121. QRS 81. QT/QTC 368/403. Good R-wave progression across the precordial leads. No T- wave inversions. Normal axis. Normal ECG. Discharge Plan Discharge Clinical Impression: ABERNATHY (dyspnea on exertion), Atypical pneumonia, Emphysema, unspecified, Diffuse lung disease Patient Disposition: Home, Self-Care Condition: Stable Instructions: Antibiotic Form, Emphysema (ED), Dyspnea (ED), Pneumonia (ED) Additional Instructions: You are being prescribed iron supplementation for your anemia. It is just as efficacious to take this every other day with fewer GI side effects. It is best absorbed when taken with vitamin C so take this with orange juice, etc. As we discussed, with the proBNP, for patient's your age we would expect it to be >900 to be abnormal. You do have evidence of atypical pneumonia on your CT scan but already been through 3 rounds of antibiotics. Will defer subsequent antibiotic administration decision to your primary care physician. Follow-up with them. Return to the emergency department with any new or worsening symptoms. 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 Patient Language: [place] Prescriptions: New ferrous sulfate 325 mg (65 mg iron) tablet 325 mg PO EVERY OTHER DAY 30 Days Qty: 15 0RF No Action aspirin [Margie Low Dose Aspirin] 81 mg Tablet,Delayed Release (Dr/Ec) 81 mg PO DAILY lysine [L-Lysine] 500 mg Tablet 500 mg PO DAILY Body, Hair, Skin and Nails 3-133 mg-mcg Capsule 1 cap PO DAILY cholecalciferol (vitamin D3) [Vitamin D3] 2,000 unit Tablet 2,000 unit PO DAILY nmepu-kc-0-wth-wio-purxidl-ast [MegaRed [employer]-3 Krill Oil] 1,000-230-60 mg Capsule 1 cap PO DAILY fluticasone propionate [Flonase Allergy Relief] 50 mcg/actuation spray,suspension 2 spray intranasal DAILY Qty: 48 1RF Rx Instructions: administer into each nostril Arnuity Ellipta 50 mcg/actuation blister with device 1 inh inhalation Q24H Qty: 30 2RF ascorbic acid (vitamin C) 60 mg Tablet,Chewable 60 mg PO DAILY carvedilol 3.125 mg tablet 3.125 mg PO BID amitriptyline 25 mg tablet 25 mg PO DAILY Follow-up/Referrals: Flynn Menendez APRN [Primary Care Provider] - Time of Disposition: 13:38
--- NOTE | 2024-09-12 10:17 | ECG_ITS ---
Test Date: 2024-09-12 10:40:55 Measurements Intervals [place] Rate: 79 P: 52 SC: 121 QRS: 55 QRSD: 81 T: 60 QT: 368 QTc: 423 Interpretive Statements SINUS RHYTHM Compared to ECG 08/22/2024 08:42:35 Short SC interval no longer present Electronically Signed On 09-15-2024 15:02:46 [employer] by Juan Carlos Hanson M.D.
[2024-09-12 10:47] LABS: Basophils Absolute Auto 0.1 K/mm3 (0.0-0.1); Basophils Percent Auto 1.4 % (0.2-1.2); Eosinophils Absolute Auto 0.5 K/mm3 (0-0.3); Eosinophils Percent Auto 6.9 % (0-4.4); Hematocrit 26.9 % (37.0-47.0); Hemoglobin 8.5 g/dL (12.0-15.0); Immature Granulocyte Absolute 0.02 K/mm3 (0.00-0.031); Immature Granulocyte Percent A 0.3 % (0-0.5); Lymphocytes Absolute Auto 1.59 K/mm3 (0.9-3.2); Lymphocytes Percent Auto 20.4 % (18.3-44.2); Mean Corpuscular HGB Conc 31.6 g/dl (32-36); Mean Corpuscular Hemoglobin 27.4 pg (26-34); Mean Corpuscular Volume 86.8 fl (80-100); Mean Platelet Volume 8.9 fl (7.4-10.4); Monocytes Absolute Auto 0.7 K/mm3 (0.1-0.6); Monocytes Percent Auto 8.5 % (2.6-8.5); Neutrophils Absolute Auto 4.9 K/mm3 (1.3-6.7); Neutrophils Percent Auto 62.5 % (45.5-73.1); Platelet Count Result 349 k/mm3 (150-375); Red Cell Distribution Width 13.6 % (11.5-14.5); White Blood Count 7.8 K/mm3 (4.5-10.0)
[2024-09-12 10:59] LABS: Partial Thromboplastin Time 30.6 Seconds (22.3-36.8); Prothrombin Time 13.1 Seconds (11.1-14.7)
[2024-09-12 11:01] LABS: Alanine Aminotransferase 16 U/L (6-35); Albumin Level 3.7 g/dL (3.5-5.1); Alkaline Phosphatase 93 U/L (38-126); Anion Gap 1 mmol/L (4-12); Aspartate Amino Transferase 27 U/L (14-36); Bilirubin,Total 0.8 mg/dL (0.2-1.3); Blood Urea Nitrogen 14 mg/dL (7-17); Calcium 9.5 mg/dL (8.4-10.2); Carbon Dioxide 27 mmol/L (22-30); Chloride 108 mmol/L (98-107); Estimated CRCL calculation 40 ml/min; Estimated Glomerular Filt Rate > 60; Glucose 90 mg/dL (65-110); Magnesium 1.7 mg/dL (1.6-2.3); Potassium 4.3 mmol/L (3.4-5.0); Sodium 136 mmol/L (137-145)
[2024-09-12 11:07] LABS: D Dimer 1.03 ug/mL (<0.48)
[2024-09-12 11:13] LABS: NT Pro B Type Natriuretic Pept 384 pg/mL (19.9-100); Troponin I < 0.012 ng/mL (0.000-0.034)
[2024-09-12 11:23] LABS: Influenza A QL RT-PCR Negative (Negative); Influenza B QL RT-PCR Negative (Negative); RSV RNA, RT-PCR Negative (Negative); SARS-CoV-2 RNA PCR Negative (Negative)
== END 2024-09-12 14:15 | disposition home or self-care (01) ==
PROVIDERS: Emergency Provider Student in an Organized Health Care Education/Training Program; PCP Student in an Organized Health Care Education/Training Program
DX: J18.9 Pneumonia, unspecified organism (principal); J43.9 Emphysema, unspecified; J98.4 Other disorders of lung; R06.00 Dyspnea, unspecified; I10 Essential (primary) hypertension; M19.90 Unspecified osteoarthritis, unspecified site; E78.5 Hyperlipidemia, unspecified; M47.816 Spondylosis without myelopathy or radiculopathy, lumbar region
CPT/HCPCS: 36415; 71045; 71275; 80053; 83735; 83880; 84484; 85025; 85380; 85610; 85730; 87637; 93005; 99283; 99284; Q9967

== ENCOUNTER 2025-03-06 09:23 | Outpatient (CLI) | payer MEDICARE, SELFPAY ==
--- NOTE | ~2025-03-06 | MM_ITS ---
EXAMINATION: MM scrn mariya implant BI w twila HISTORY: Screening mammogram TECHNIQUE: Craniocaudal and mediolateral oblique 3-D tomosynthesis images with implant displacement a nd synthetic 2-D images were generated. Craniocaudal and mediolateral oblique views of the breasts wi thout implant displacement were obtained using full field digital mammography. CAD analysis was submi tted and interpreted. COMPARISON: 09/24/2023: 1123, 08/09/2021 BREAST PARENCHYMAL COMPOSITION: There are scattered areas of fibroglandular density. FINDINGS: There is no evidence of suspicious mass, calcification, or architectural distortion to sugg est malignancy in either breast. There has been no suspicious interval change. IMPRESSION: No mammographic evidence of malignancy. Recommend routine screening mammography in one year. BI-RADS Category 1: Negative Reviewed, dictated and finalized at [facility].
== END 2025-03-06 09:24 | disposition home or self-care (01) ==
LOC: ANHIMG 09:32
PROVIDERS: PCP Family Medicine; Visit Provider Nurse Practitioner Women's Health
DX: Z12.31 Encounter for screening mammogram for malignant neoplasm of breast (principal)
CPT/HCPCS: 77063; 77067